=== PATIENT | female | born 1985 | race Caucasian/White ===

== ENCOUNTER 2021-08-22 16:32 | Outpatient (NON) | payer BC, OTHER, SELFPAY ==
[2021-08-22 18:38] LABS: Toxigenic C. Diff NEGATIVE (NEGATIVE)
== END 2021-08-22 16:33 | disposition home or self-care (01) ==
LOC: ANHLAB 16:40
DX: K59.89 Other specified functional intestinal disorders (principal)
CPT/HCPCS: 87493

== ENCOUNTER 2022-09-15 15:41 | Emergency (ER) | payer BC, OTHER, SELFPAY ==
--- NOTE | ~2022-09-15 | XR_ITS ---
EXAMINATION: XR foot RT min 3V DATE: 09/15/2022 16:30 INDICATION: Right foot injury. TECHNIQUE: 4 views of right foot were obtained. COMPARISON: None. FINDINGS: There is moderate hallux valgus. No fracture. Joint spaces are normal. There is an enthesop hyte at plantar aspect of calcaneal tuberosity. IMPRESSION: 1. Moderate hallux valgus. Reviewed, dictated and finalized at location A. IMPRESSION: 1. Moderate hallux valgus.
[2022-09-15 16:17] VITALS: BP 116/65; PULSE 65; RESP 16; TEMP 36.7; O2SAT 100
--- NOTE | 2022-09-15 16:41 | ED.LOWEXIN ---
HPI - Extremity Injury (Lower) General Chief Complaint: Extremity Injury, Lower Stated Complaint: rt foot injury Time Seen by Provider: 09/15/22 16:20 Source: patient, family () and RN notes reviewed Mode of arrival: ambulatory Limitations: no limitations History of Present Illness HPI Narrative: Patient presents today complaining of pain to the dorsum of her right foot. One week ago, a refrigerator door fell on her foot. She currently rates her pain 5/10 and has been taking ibuprofen and applying heat and ice with mild relief. She also reports some tingling in her toes. Related Data Home Medications Medication Instructions Recorded Confirmed cyclobenzaprine 10 mg tablet 10 mg PO HS PRN rheumatoid 09/15/22 09/15/22 arthritis lorazepam 0.5 mg tablet 0.5 mg PO TID PRN Anxiety 09/15/22 09/15/22 oxcarbazepine 300 mg tablet 300 mg PO BID 09/15/22 09/15/22 Allergies Allergy/AdvReac Type Severity Reaction Status Date / Time Sulfa (Sulfonamide Allergy Severe Swelling Verified 09/15/22 16:46 Antibiotics) of Lip/Tongue/Throat ziprasidone [From Geodon] Allergy Severe Other Verified 09/15/22 16:48 duloxetine [From Cymbalta] AdvReac Intermediate Nausea and Verified 09/15/22 16:47 Vomiting lidocaine AdvReac Intermediate Gastrointestinal Verified 09/15/22 16:46 Upset morphine AdvReac Intermediate Nausea and Verified 09/15/22 16:45 Vomiting Review of Systems Review of Systems: CONSTITUTIONAL: Denies body aches, fever, chills, or sweats. EYES: Denies visual changes, redness, or discharge. ENT: Denies rhinorrhea, congestion, sore throat, or otalgia. CARDIOVASCULAR: Denies chest pain, palpitations, or edema. RESPIRATORY: Denies cough or dyspnea. GASTROINTESTINAL: Denies abdominal pain, nausea, vomiting, or diarrhea. GENITOURINARY: Denies dysuria or hematuria. SKIN: Denies rash, itching, or wounds. MUSCULOSKELETAL: Denies back pain, or myalgia.+ right foot pain NEUROLOGIC: Denies headache, numbness, tingling, or weakness. PSYCH: Denies depression or anxiety. [facility] Past Medical History Medical History (Updated 09/15/22 @ 16:51 by CHRISTIANO Jonas, ) Epilepsy Rheumatoid arthritis Comments At time of signature, I have reviewed and agree with nursing past medical, surgical, social and family history unless otherwise noted. Please see nursing chart for further information. There is no relevant family history pertinent to the presenting complaint Exam Narrative: GENERAL: Well-appearing, well-nourished, and in no acute distress. HEAD: Normocephalic, atraumatic. EYES: EOMI. No redness or drainage. Conjunctivae normal. ENT: Mucous membranes pink and moist. NECK: Normal AROM. CHEST: No respiratory distress. EXTREMITIES: Right foot: Patient has healing bruising to the base of the 2nd and 3rd toes that is tender to palpation. No edema or erythema noted to the foot. Distal sensation intact. Capillary refill normal. Pedal pulse normal. Full range of motion of all toes with increased pain in the foot. SKIN: Warm, dry, no rash. Capillary refill normal. Normal skin turgor. NEURO: No focal deficits. Alert and oriented x3. Gait steady. PSYCH: Normal affect. No signs of depression or anxiety. Course Course Level of Care: Express Care Visit Vital Signs Vital signs: Vital Signs Temperature 98.1 F 09/15/22 16:17 Pulse Rate 65 09/15/22 16:17 Respiratory Rate 16 09/15/22 16:17 Blood Pressure 116/65 09/15/22 16:17 Pulse Oximetry 100 09/15/22 16:17 Oxygen Delivery Room Air 09/15/22 16:17 Temperature 98.1 F 09/15/22 16:17 Pulse Rate 65 09/15/22 16:17 Respiratory Rate 16 09/15/22 16:17 Blood Pressure 116/65 09/15/22 16:17 Pulse Oximetry 100 09/15/22 16:17 Oxygen Delivery Room Air 09/15/22 16:17 Reviewed MDM - Extremity Injury (Lower) MDM Narrative Medical decision making narrative: X-ray is negative for fracture. Pain
== END 2022-09-15 16:53 | disposition home or self-care (01) ==
PROVIDERS: Emergency Provider Nurse Practitioner; PCP Family Medicine
DX: S90.31XA Contusion of right foot, initial encounter (principal); W20.8XXA Other cause of strike by thrown, projected or falling object, initial encounter; G40.909 Epilepsy, unspecified, not intractable, without status epilepticus; M06.9 Rheumatoid arthritis, unspecified
CPT/HCPCS: 73630; 99213; G0463

== ENCOUNTER 2023-04-18 17:54 | Emergency (ER) | payer OTHER, SELFPAY ==
--- NOTE | ~2023-04-18 | CT_ITS ---
CT of the Abdomen and Pelvis: Indication: Abdominal pain Technique: 2.5 mm axial scans were obtained through the abdomen and pelvis following intravenous adm inistration of 100 cc of Omnipaque 350. Dose reduction technique was used on this scan by utilizing a utomated exposure control and iterative reconstruction technique. The dose-length product (DLP) was 3 83.27 mGy-cm. Findings: Scans through the lung bases are unremarkable. The liver, spleen, pancreas, adrenals and kidneys are within normal limits. Cholecystectomy clips are present. No evidence of aortic aneurysm. No lymphadenopathy. No bowel obstruction or bowel wall thickening. There is no evidence to suggest acute appendicitis. Images through the pelvis were performed. Urinary bladder unremarkable. Probable [address] There is a small amount of pelvic ascites. Impression: 3 cm adnexal cyst. Small amount of pelvic ascites, nonspecific. Correlate for ovarian cyst rupture. Reviewed, dictated and finalized at [facility]. [employer]PER[employer] HELPER Impression: 3 cm adnexal cyst. Small amount of pelvic ascites, nonspecific. Correlate for ovarian cyst rupture .
--- NOTE | 2023-04-18 17:59 | ED.NAVMDI ---
HPI - Nausea/Vomiting/Diarrhea General Chief complaint: Abdominal Pain <Perry Bernal APRN - Last Filed: 04/19/23 09:07> Stated complaint: diarrhea for 2 weeks <Perry Bernal APRN - Last Filed: 04/19/23 09:07> Time Seen by Provider: 04/18/23 17:55 <Perry Bernal APRN - Last Filed: 04/19/23 09:07> Source: patient <Perry Bernal APRN - Last Filed: 04/19/23 09:07> Mode of arrival: ambulatory <Perry Bernal APRN - Last Filed: 04/19/23 09:07> Limitations: no limitations <Perry Bernal APRN - Last Filed: 04/19/23 09:07> History of Present Illness HPI Narrative: Jessica is a 37-year-old female patient presenting to the ER today with complaints of right upper quadrant abdominal pain and diarrhea x9 days. She reports she felt feverish and had cold chills at the beginning of her illness. States she does have nausea without vomiting. Feels as though there is a pressure in her right upper quadrant and feels as though her colon is about ready to explode. Rates her pain currently a 6/10. Denies any blood in her stools. Has been taking Imodium without relief of diarrhea. History of colitis, cholecystectomy,and hysterectomy. Medical history also includes epilepsy and rheumatoid arthritis <Perry Bernal APRN - Last Filed: 04/19/23 09:07> Related Data Home medications: Home Medications Medication Instructions Recorded Confirmed cyclobenzaprine 10 mg tablet 10 mg PO HS PRN rheumatoid 09/15/22 09/15/22 arthritis lorazepam 0.5 mg tablet 0.5 mg PO TID PRN Anxiety 09/15/22 09/15/22 oxcarbazepine 300 mg tablet 300 mg PO BID 09/15/22 09/15/22 <Perry Bernal APRN - Last Filed: 04/19/23 09:07> Allergies/Adverse reactions: Allergies Allergy/AdvReac Type Severity Reaction Status Date / Time Sulfa (Sulfonamide Allergy Severe Swelling Verified 09/15/22 16:46 Antibiotics) of Lip/Tongue/Throat ziprasidone [From Geodon] Allergy Severe Other Verified 09/15/22 16:48 duloxetine [From Cymbalta] AdvReac Intermediate Nausea and Verified 09/15/22 16:47 Vomiting lidocaine AdvReac Intermediate Gastrointestinal Verified 09/15/22 16:46 Upset morphine AdvReac Intermediate Nausea and Verified 09/15/22 16:45 Vomiting <Perry Bernal APRN - Last Filed: 04/19/23 09:07> Review of Systems Review of Systems: Pertinent positives per HPI. Patient denies any fever, chills, rash, headache, visual changes, dizziness, cough, runny nose, sore throat, shortness of breath, chest pain, palpitations, vomiting, constipation, or any urinary issues. <Perry Bernal APRN - Last Filed: 04/19/23 09:07> PMFSH Past Medical History Medical History: Medical History Epilepsy Rheumatoid arthritis <Perry Bernal APRN - Last Filed: 04/19/23 09:07> Comments At the time of my signature, I reviewed and agree with the nursing past medical, surgical, social, and family history. There is no relevant family history pertinent to the patient complaint. <Perry Bernal APRN - Last Filed: 04/19/23 09:07> Exam Narrative: General: Well-developed, well nourished, in no apparent distress. Head: Normocephalic, atraumatic. Cardio: Regular rate and rhythm, s1 and s2 normal, no murmur appreciated. Resp: Clear to auscultation bilaterally, no rhonchi, rales, wheezing or rubs. Abdomen: Soft, pliable, bowel sounds present in all quadrants, tender to palpation in the right upper quadrant, no organomegly, no CVAT tenderness. <Perry Bernal APRN - Last Filed: 04/19/23 09:07> Course Course Emergency Course: Portions of this record may have been created with voice recognition software. <Perry Bernal APRN - Last Filed: 04/19/23 09:07> Portions of this record may have been created with voice recognition software. RAN [id number] - Layo signed out to isaias
[2023-04-18 18:03] VITALS: BP 141/90; PULSE 107; RESP 20; TEMP 36.7; O2SAT 100
[2023-04-18 18:18] LABS: Basophils Percent Auto 0.5 % (0.2-1.2); Eosinophils Absolute Auto 0.1 K/mm3 (0-0.3); Eosinophils Percent Auto 1.1 % (0-4.4); Hemoglobin 13.4 g/dL (12.0-15.0); Immature Granulocyte Absolute 0.01 K/mm3 (0.00-0.031); Immature Granulocyte Percent A 0.1 % (0-0.5); Lymphocytes Absolute Auto 3.79 K/mm3 (0.9-3.2); Lymphocytes Percent Auto 43.3 % (18.3-44.2); Mean Corpuscular HGB Conc 34.4 g/dl (32-36); Mean Corpuscular Hemoglobin 30.5 pg (26-34); Mean Corpuscular Volume 88.6 fl (80-100); Monocytes Absolute Auto 0.6 K/mm3 (0.1-0.6); Monocytes Percent Auto 6.5 % (2.6-8.5); Neutrophils Absolute Auto 4.2 K/mm3 (1.3-6.7); Neutrophils Percent Auto 48.5 % (45.5-73.1); Platelet Count Result 296 k/mm3 (150-375); Red Cell Distribution Width 11.6 % (11.5-14.5); White Blood Count 8.8 K/mm3 (4.5-10.0)
[2023-04-18] MEDS: ONDANSETRON INJ 4 MG/2 ML VIAL IV PUSH (18:22)
[2023-04-18] MEDS: SODIUM CHLORIDE 0.9% IV 1,000 ML 999 ML IV CONT (18:23)
[2023-04-18 18:25] VITALS: BP 115/69; PULSE 84; RESP 18; O2SAT 99
[2023-04-18 18:31] LABS: Alanine Aminotransferase 15 U/L (6-35); Albumin Level 4.5 g/dL (3.5-5.1); Alkaline Phosphatase 64 U/L (38-126); Anion Gap 10 mmol/L (8-16); Aspartate Amino Transferase 30 U/L (14-36); Bilirubin,Total 0.7 mg/dL (0.2-1.3); Blood Urea Nitrogen 7 mg/dL (7-17); Calcium 9.5 mg/dL (8.4-10.2); Carbon Dioxide 23 mmol/L (22-30); Chloride 107 mmol/L (98-107); Estimated CRCL calculation 100 ml/min; Estimated Glomerular Filt Rate > 60; Glucose 91 mg/dL (65-110); Lipase 60 U/L (23-300); Potassium 3.5 mmol/L (3.4-5.0); Sodium 140 mmol/L (137-145)
[2023-04-18 19:13] LABS: Appearance Urine Clear (Clear); Bilirubin Urine Negative (Negative); Blood Urine Negative (Negative); Color Urine Yellow (Yellow); Glucose Urine UA Negative (Negative); Ketones Urine 1+ mg/dL (Negative); Leukocyte Esterase Ur Negative LEU/UL (Negative); Nitrate Urine Negative (Negative); Protein Urine Negative (Negative); Specific Grav Ur 1.025 (1.001-1.035); Urobilinogen Urine 0.2 mg/dL (<2.0)
[2023-04-18 19:23] LABS: Add Urine Microscopic? NO
[2023-04-18] MEDS: KETOROLAC 30 MG/ML VIAL (*BKC) IV PUSH (19:40)
[2023-04-18 19:57] VITALS: PULSE 83; RESP 17; O2SAT 99
== END 2023-04-18 19:58 | disposition home or self-care (01) ==
PROVIDERS: Emergency Provider Nurse Practitioner Family; PCP Family Medicine
DX: E28.2 Polycystic ovarian syndrome (principal); R10.11 Right upper quadrant pain; R19.7 Diarrhea, unspecified; G40.909 Epilepsy, unspecified, not intractable, without status epilepticus; M06.9 Rheumatoid arthritis, unspecified; Z90.710 Acquired absence of both cervix and uterus; Z90.49 Acquired absence of other specified parts of digestive tract
CPT/HCPCS: 36415; 74177; 80053; 81003; 83690; 85025; 96361; 96374; 96375; 99284; A9270; J1885; J2405; J7030; Q9967

== ENCOUNTER 2023-06-27 18:08 | Emergency (ER) | payer OTHER, SELFPAY ==
[2023-06-27] VITALS (11 sets, daily range): BP systolic 113–142; BP diastolic 77–79; PULSE 79–105; RESP 10–18; TEMP 36.4; O2SAT 93–100
--- NOTE | ~2023-06-27 | CT_ITS ---
EXAMINATION: CT brain wo con DATE: 06/27/2023 19:38 INDICATION: head injury . TECHNIQUE: Computed tomography (CT) of the head was performed without intravenous contrast. The mA wa s adjusted according to patient size. Iterative reconstruction technique was employed. The dose-lengt h product was 681.00 mGy-cm. COMPARISON: None. FINDINGS: No acute intracranial hemorrhage or extra-axial fluid collection. No hydrocephalus, mass, or herniation. No acute ischemic infarct. Unremarkable dural venous sinus attenuation. No acute osseous abnormality. Aerated secretions in the posterior left ethmoid sinus, retention cyst or polyp in the right maxillar y sinus, the remaining aerated spaces are clear. IMPRESSION: No acute intracranial process. Aerated secretions in the left posterior ethmoid sinus, may represent acute sinusitis or minimal muco pat hemorrhage in the setting of trauma. Reviewed, dictated and finalized at [facility]. IMPRESSION: No acute intracranial process. Aerated secretions in the left posterior ethmoid sinus, may represent acute sin usitis or minimal mucosal hemorrhage in the setting of trauma.
--- NOTE | ~2023-06-27 | CT_ITS ---
EXAMINATION: CT cervical spine wo con DATE: 06/27/2023 19:38 INDICATION: head injury TECHNIQUE: Computed tomography (CT) of the cervical spine was performed without intravenous contrast. Automated exposure control and iterative reconstruction technique were employed. The dose-length pro duct was 411.02 mGy-cm. COMPARISON: None. FINDINGS: Vertebral Body Alignment: Intact. Reversed lordosis, centered at C5. Craniocervical and atlantoaxial alignment: No significant degenerative change. Alignment intact. Osseous structures/fracture: No evidence of a lytic or blastic process in the visualized spine. No e vidence of acute fracture. Cervical soft tissues: The paraspinal soft tissues planes are maintained. 2.8 cm partially calcified thyroid isthmus nodule. 1.4 cm hypodense left thyroid nodule. Degenerative changes: No significant degenerative changes. IMPRESSION: No acute fracture or traumatic malalignment in the cervical spine. Multiple thyroid nodules, recommend nonemergent outpatient thyroid ultrasound for further characteriz ation. Reviewed, dictated and finalized at location [facility]. IMPRESSION: No acute fracture or traumatic malalignment in the cervical spine. Multiple thyroid nodules, recommend nonemergent outpatient thyroid ultrasound f or further characterization.
[2023-06-27 19:10] LABS: Basophils Percent Auto 0.3 % (0.2-1.2); Eosinophils Absolute Auto 0.1 K/mm3 (0-0.3); Eosinophils Percent Auto 1.1 % (0-4.4); Hematocrit 40.3 % (37.0-47.0); Hemoglobin 13.9 g/dL (12.0-15.0); Immature Granulocyte Absolute 0.03 K/mm3 (0.00-0.031); Immature Granulocyte Percent A 0.3 % (0-0.5); Lymphocytes Absolute Auto 3.76 K/mm3 (0.9-3.2); Lymphocytes Percent Auto 42.8 % (18.3-44.2); Mean Corpuscular HGB Conc 34.5 g/dl (32-36); Mean Corpuscular Hemoglobin 31.3 pg (26-34); Mean Corpuscular Volume 90.8 fl (80-100); Mean Platelet Volume 9.8 fl (7.4-10.4); Monocytes Absolute Auto 0.6 K/mm3 (0.1-0.6); Monocytes Percent Auto 6.6 % (2.6-8.5); Neutrophils Absolute Auto 4.3 K/mm3 (1.3-6.7); Neutrophils Percent Auto 48.9 % (45.5-73.1); Platelet Count Result 354 k/mm3 (150-375); Red Blood Count 4.44 M/mm3 (4.2-5.4); Red Cell Distribution Width 11.7 % (11.5-14.5); White Blood Count 8.8 K/mm3 (4.5-10.0)
[2023-06-27 19:23] LABS: Alanine Aminotransferase 20 U/L (6-35); Albumin Level 4.8 g/dL (3.5-5.1); Alkaline Phosphatase 69 U/L (38-126); Anion Gap 6 mmol/L (8-16); Aspartate Amino Transferase 25 U/L (14-36); Bilirubin,Total 0.7 mg/dL (0.2-1.3); Blood Urea Nitrogen 7 mg/dL (7-17); Calcium 9.8 mg/dL (8.4-10.2); Carbon Dioxide 27 mmol/L (22-30); Chloride 105 mmol/L (98-107); Estimated CRCL calculation 100 ml/min; Estimated Glomerular Filt Rate > 60; Glucose 94 mg/dL (65-110); Magnesium 1.9 mg/dL (1.6-2.3); Potassium 3.9 mmol/L (3.4-5.0); Sodium 138 mmol/L (137-145)
--- NOTE | 2023-06-27 20:44 | ED.NEUROSD ---
HPI - Neuro Symptoms/Deficit General Chief Complaint: Neuro Symptoms/Deficit <Lyndsey Agosto PA-C - Last Filed: 06/27/23 22:44> Stated Complaint: fall, new onset facial twitching <CHAITANYA Llamas Last Filed: 06/27/23 22:44> Time Seen by Provider: 06/27/23 18:30 <CHAITANYA Llamas Last Filed: 06/27/23 22:44> Focused HPI: This is a 37 year old female that presents to the ER for facial twitching. Ongoing over the last week. Reports history of seizures and it started after she had a seizure and fell and hit her head. Reports associated facial droop. Denies other focal numbness or weakness. GENERAL: Well-appearing, well-nourished, and in no acute distress. HEAD: Normocephalic, atraumatic. CHEST: Clear to auscultation. ?No respiratory distress. HEART: Regular rate and rhythm.? NEURO: ?Alert and oriented x3. Facial asymmetry noted Patient screened in triage and initial orders placed.? ?Additional care and disposition to be based upon?diagnostic testing and treatment. <CHAITANYA Llamas Last Filed: 06/27/23 22:44> Related Data Home Medications: Home Medications Medication Instructions Recorded Confirmed lorazepam 0.5 mg tablet 0.5 mg PO TID PRN Anxiety 09/15/22 09/15/22 oxcarbazepine 300 mg tablet 300 mg PO BID 09/15/22 09/15/22 <CHAITANYA Llamas Last Filed: 06/27/23 22:44> Allergies/Adverse Reactions: Allergies Allergy/AdvReac Type Severity Reaction Status Date / Time Sulfa (Sulfonamide Allergy Severe Swelling Verified 09/15/22 16:46 Antibiotics) of Lip/Tongue/Throat ziprasidone [From Geodon] Allergy Severe Other Verified 09/15/22 16:48 duloxetine [From Cymbalta] AdvReac Intermediate Nausea and Verified 09/15/22 16:47 Vomiting lidocaine AdvReac Intermediate Gastrointestinal Verified 09/15/22 16:46 Upset morphine AdvReac Intermediate Nausea and Verified 09/15/22 16:45 Vomiting <Lyndsey Agosto PA-C - Last Filed: 06/27/23 22:44> Review of Systems Review of Systems: CONSTITUTIONAL: Denies fever, chills, or sweats. EYES: Shaking vision Denies visual changes, redness, or discharge. ENT: Right-sided jaw pain with chewing CARDIOVASCULAR: Denies chest pain, palpitations, or edema. RESPIRATORY: Denies cough or dyspnea. GASTROINTESTINAL: Denies abdominal pain, nausea, vomiting, or diarrhea. GENITOURINARY: Status post hysterectomy. Denies dysuria or hematuria. SKIN: Denies rash or itching. MUSCULOSKELETAL: Denies back pain, joint pain, or myalgia. NEUROLOGIC: Right-sided facial twitching Denies headache, numbness, dizziness, or weakness. PSYCHIATRIC: Denies anxiety or depression. <Nando Ma MD - Last Filed: 06/28/23 07:06> PMFSH Past Medical History Medical History: Medical History Epilepsy Rheumatoid arthritis <Lyndsey Agosto PA-C - Last Filed: 06/27/23 22:44> Surgical History Surgical History: Surgical History History of hysterectomy <Lyndsey Agosto PA-C - Last Filed: 06/27/23 22:44> Social History Social History: Social History Smoking status: Former smoker Alcohol intake: never Substance use type: marijuana <Lyndsey Agosto PA-C - Last Filed: 06/27/23 22:44> Exam Narrative: GENERAL: Well-developed, well-nourished, and in no acute distress. Anxious HEAD: Normocephalic, atraumatic. EYES: PERRLA and EOMI. ENT: Tender to palpation over the right scientologist without palpable cord or mass. Right-sided twitching at the corner of the mouth Nares clear, no rhinorrhea or epistaxis. Mucous membranes moist. Oropharynx without tonsillar hypertrophy exudate or other lesions. CHEST: Clear to auscultation. No respiratory distress. No wheezes rales or rhonchi HEART: Regular rate and rhythm. No murmur heard. Normal peripheral pulses
--- NOTE | 2023-06-27 21:20 | PC.NURSE ---
Right facial tightness and twitching instead of droop.
[2023-06-27 21:35] LABS: CRP < 0.5 mg/dL (<1.0)
[2023-06-27 21:59] LABS: Erythrocyte Sedimentation Rate 21 mm/hr (0-20)
== END 2023-06-27 23:11 | disposition home or self-care (01) ==
PROVIDERS: Physician Assistant; Emergency Provider Preventive Medicine Aerospace Medicine; PCP Family Medicine
DX: R25.3 Fasciculation (principal); G40.909 Epilepsy, unspecified, not intractable, without status epilepticus; M06.9 Rheumatoid arthritis, unspecified; Z87.891 Personal history of nicotine dependence; E04.1 Nontoxic single thyroid nodule
CPT/HCPCS: 36415; 70450; 72125; 80053; 83735; 84443; 85025; 85652; 86140; 99284